=== PATIENT | female | born 1985 | race Caucasian/White ===

== ENCOUNTER 2017-02-06 20:05 | Emergency (ER) | payer OTHER ==
[~2017-02-06 20:05] MED LIST: AMOXICILLIN500 M1 PO; BACTRIM DS TABL1 TA1; BACTRIM DS TABL1 TA1 PO; BIRTH CONTROL PILL; BIRTH CONTROL PILL PO; BIRTH CONTROL PO; EXCEDRIN GELTAB1 TA1; FIORICET 50-321 EACH PO; FIORINAL/CODEIN1 CA1 PO; FLEXERIL10 MG PO; MARY'S MAGIC MOUTH PO; METHADONE PO; MOTRIN600 MG PO; NAPROSYN500 MG PO; NO MEDICATIONS; PERCOCET; PHENERGAN25 MG PO; TOPAMAX; TRILEPTAL; VICODIN 5/500 T1 TAB PO; VISCOUS LIDOCAINE; VOLTAREN75 MG PO; [UNRECOGNIZED DRUG - OTHER] PO
== END 2017-02-06 20:45 | disposition home or self-care (01) ==
LOC: SED 20:05 → CED 20:05 → SED 20:43
DX: L30.9 Dermatitis, unspecified (principal); F17.210 Nicotine dependence, cigarettes, uncomplicated; Z79.899 Other long term (current) drug therapy
CPT/HCPCS: 99282

== ENCOUNTER 2017-04-04 13:43 | Emergency (ER) | payer OTHER | END 2017-04-04 14:08 | disposition home or self-care (01) | LOC: SED 13:43 | DX: S60.561A Insect bite (nonvenomous) of right hand, initial encounter (principal); F17.210 Nicotine dependence, cigarettes, uncomplicated; Z79.899 Other long term (current) drug therapy; W57.XXXA Bitten or stung by nonvenomous insect and other nonvenomous arthropods, initial encounter | CPT/HCPCS: 99282 ==